=== PATIENT | male | born 1940 | race Two or more races ===

== ENCOUNTER 2022-09-26 09:55 | Day surgery (SDC) | payer OTHER | END 2022-09-26 14:15 | disposition home or self-care (01) | LOC: AMB-ENDOS 09:55 → CIR.AMB 15:15 | PROVIDERS: ATTEND Colon & Rectal Surgery | DX: K63.5 Polyp of colon (principal); K64.8 Other hemorrhoids; Z20.822 Contact with and (suspected) exposure to COVID-19 ==

== ENCOUNTER 2022-10-17 11:50 | Day surgery (SDC) | payer OTHER | END 2022-10-17 16:40 | disposition home or self-care (01) | LOC: AMB-ENDOS 11:50 | PROVIDERS: ATTEND Colon & Rectal Surgery | DX: D12.3 Benign neoplasm of transverse colon (principal); D12.5 Benign neoplasm of sigmoid colon; K57.30 Diverticulosis of large intestine without perforation or abscess without bleeding; Z20.822 Contact with and (suspected) exposure to COVID-19 ==